=== PATIENT | female | born 1945 | race Caucasian/White ===

== ENCOUNTER → 2017-03-08 | Outpatient (CLI) | payer OTHER | LOC: FIMAGING 10:22 | DX: Z12.31 Encounter for screening mammogram for malignant neoplasm of breast (principal) | CPT/HCPCS: G0202 ==

== ENCOUNTER → 2017-10-04 | Outpatient (CLI) | payer OTHER | LOC: FIMAGING 12:35 | PROVIDERS: ATTEND Family Medicine Geriatric Medicine | DX: Z13.820 Encounter for screening for osteoporosis (principal); M85.89 Other specified disorders of bone density and structure, multiple sites; E55.9 Vitamin D deficiency, unspecified; Z78.0 Asymptomatic menopausal state ==

== ENCOUNTER → 2017-12-02 | Outpatient (CLI) | payer OTHER | LOC: BHFA 13:15 | PROVIDERS: ATTEND Internal Medicine Cardiovascular Disease | DX: I47.1 Supraventricular tachycardia (principal); I10 Essential (primary) hypertension; I71.2 Thoracic aortic aneurysm, without rupture ==

== ENCOUNTER → 2017-12-25 | Outpatient (CLI) | payer OTHER | LOC: BHFA 11:30 | PROVIDERS: ATTEND Internal Medicine | DX: I47.1 Supraventricular tachycardia (principal); I10 Essential (primary) hypertension ==

== ENCOUNTER → 2018-03-12 | Outpatient (CLI) | payer OTHER | END | disposition home or self-care (01) | LOC: FIMAGING 11:11 | PROVIDERS: ATTEND Family Medicine Geriatric Medicine | DX: Z12.31 Encounter for screening mammogram for malignant neoplasm of breast (principal) ==

== ENCOUNTER → 2018-06-25 | Outpatient (CLI) | payer OTHER | LOC: BHFA 13:30 | PROVIDERS: ATTEND Internal Medicine Cardiovascular Disease | DX: Z01.818 Encounter for other preprocedural examination (principal); I47.2 Ventricular tachycardia; I50.9 Heart failure, unspecified | CPT/HCPCS: 78452; 93017; A9500 ==

== ENCOUNTER 2018-07-12 10:16 | Emergency (ER) | payer OTHER ==
--- NOTE | 2018-07-12 10:30 | EDPHY ---
H & P Stated Complaint: Increased swelling to left knee. Time Seen by Provider: 07/12/18 10:29 - Personal History Current Tetanus Diphtheria and Acellular Pertussis (TDAP): Yes - Medical/Surgical History Hx Asthma: No Hx Chronic Respiratory Disease: Yes Hx Diabetes: No Hx Cardiac Disease: No Hx Renal Disease: No Hx Cirrhosis: No Hx Alcoholism: No Hx HIV/AIDS: No Hx Splenectomy or Spleen Trauma: No Other PMH: HTN. Left knee replacement 07/07/18. - Social History Smoking Status: Never smoked Constitutional: Initial Vital Signs Temperature (C) 36.9 C 07/12/18 10:26 Heart Rate 93 07/12/18 10:26 Respiratory Rate 19 07/12/18 10:26 Blood Pressure 155/84 H 07/12/18 10:26 O2 Sat (%) 95 07/12/18 10:26 O2 Delivery Mode Room Air Allergies/Adverse Reactions: LATEX Allergy (Uncoded 08/06/15 16:49) Home Medications: Medication Instructions Recorded Hydrocodone/APAP 5/325 [Halliday 1 each PO Q4-6PRN PRN #15 tab 08/06/15 5/325 (*)] Losartan 08/06/15 Medical Decision Making - Diagnostics Imaging: Discussed imaging studies w/ call or contact centre operator Radiologist, I viewed and interpreted images myself ED Course/Re-evaluation: CHIEF COMPLAINT: Left knee swelling s/p knee replacement HISTORY OF PRESENT ILLNESS: The patient is a 72 y/o female complaining of worsening swelling in her left knee s/p left total knee replacement on 07/07 at [facility], 6 days ago. She did not have any complications immediately after the surgery. Since the surgery she has been "icing it 01/10". However, the swelling has continued and she became concerned that she developed a DVT. She is taking a two baby aspirin daily for anticoagulation. No fever, headache, body aches, lightheadedness, chest pain, heart palpitations, shortness of breath, cough, abdominal pain, urinary or bowel complaints, numbness, paresthesias. REVIEW OF SYSTEMS: A 10 point review of systems was performed and is negative with the exception of the elements mentioned in the history of present illness. PHYSICAL EXAM: HR, BP, O2 Sat, RR. Temp noted General Appearance: Alert, well hydrated, appropriate, and non-toxic appearing. Head: Atraumatic without scalp tenderness or obvious injury Eyes: Pupils equal, round, reactive to light and accommodation, EOMI, no trauma , no injection. Ears: Clear bilaterally, no perforation, normal landmarks Nose: Atraumatic, no rhinorrhea, clear. Throat: There is no erythema or exudates, no lesions, normal tonsils, mucus membranes moist. Neck: Supple, 2+ carotid upstroke, nontender, no lymphadenopathy. Respiratory: No retractions, no distress, no wheezes, and no accessory muscle use. Lungs are clear to auscultation bilaterally. Cardiovascular: Regular rate and rhythm, no murmurs, rubs, or gallops. Bilateral carotid, radial, dorsalis pedis, and posterior tibial pulses intact. Good capillary refill all extremities. Gastrointestinal: Abdomen is soft, nontender, non-distended, no masses, no rebound, no guarding, no peritoneal signs. Musculoskeletal: Swelling in left knee, well healing scar. Normal active ROM of all extremities, atraumatic. Neurological: Alert, appropriate, and interactive. The patient has normal DTRs and non-focal cranial nerves, motor, sensory, and cerebellar exam. Skin: No rashes, good turgor, no nodules on palpation. Past medical history: Hypertension Past surgical history: Left knee replacement (07/07/18), right knee replacement (2010) Family history: Denies Social history: at bedside, lives in [place], retired DIAGNOSTICS/PROCEDURES/CRITICAL CARE TIME: Left lower extremity US: No acute findings including DVT. DIFFERENTIAL DIAGNOSIS: The differential diagnosis for the patient's leg swelling included but was not limited to hypoalbuminemia, congestive heart failure, cor pulmonale, venous stasis, trauma, and DVT. MEDICAL DECISION MAKING: The patient is a 72 y/o female presenting with worsening swelling in her left knee s/p left total knee replacement on 07/07 at [facility], 6 days ago. She is taking a two baby aspirin daily for anticoagulation. On exam she has swelling of her left knee and a well healing scar. Left lower extremity US ordered. 1125: I spoke with Dr. Escamilla, radiologist, regarding patient's LLE US. There are no acute findings including no signs of a DVT. 1126: Reassessed patient and discussed imaging findings. I have advised her to take Aspirin and Percocet as prescribed by her orthopedic surgeon. I have also advised her to follow up with his orthopedic surgeon within the week. Return precautions provided; patient and her are comfortable with this plan. Departure - Departure Disposition: Home, Routine, Self-Care Clinical Impression: Swelling of left knee joint Condition: Good Instructions: Swollen Knee Joint (ED), Knee Pain (ED) Additional Instructions: 1. Rest, ice, elevation. 2. Continue taking Aspirin and Percocet as prescribed by your orthopedic surgeon. 3. Follow up with your orthopedic surgeon within one week. 4. Return to the emergency department for worsening pain, swelling, numbness, weakness or other concerns. Referrals: Juana Barron MD [Primary Care Provider] - As per Instructions Report Scribed for: Eric Peña Report Scribed by: Rain Kruse Date of Report: 07/12/18 Time of Report: 11:23
[2018-07-12 11:31] VITALS: BP 136/86
== END 2018-07-12 11:31 | disposition home or self-care (01) ==
DX: M79.89 Other specified soft tissue disorders (principal); I10 Essential (primary) hypertension; Z96.652 Presence of left artificial knee joint